=== PATIENT | female | born 2000 | race Hispanic/Latino ===

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

== ENCOUNTER 2023-04-06 16:12 | Emergency (ER) | payer MEDICAID, OTHER ==
[~2023-04-06] VITALS: Ht 165.1 cm; Wt 152.0 kg
[2023-04-06 16:26] VITALS: BP 138/74; PULSE 94; RESP 16; O2SAT 97
== END 2023-04-06 19:14 | disposition left against medical advice (07) ==
LOC: EDH 16:12
DX: M54.9 Dorsalgia, unspecified (principal); Z53.21 Procedure and treatment not carried out due to patient leaving prior to being seen by health care provider
CPT/HCPCS: 99281

== ENCOUNTER 2023-06-17 21:15 | Emergency (ER) | payer OTHER ==
[~2023-06-17] VITALS: Ht 165.1 cm; Wt 154.2 kg
[2023-06-17 23:50] LABS: APPEARANCE,URINE CLEAR (CLEAR); BILIRUBIN,URINE NEGATIVE (NEGATIVE); COLOR,URINE YELLOW (YELLOW); GLUCOSE, URINE (UA) NEGATIVE (NEGATIVE); KETONES,URINE NEGATIVE (NEGATIVE); LEUKOCYTE ESTERASE ,URINE 75 Leu/uL (NEGATIVE); NITRATE,URINE NEGATIVE (NEGATIVE); OCCULT BLOOD,URINE NEGATIVE (NEGATIVE); PROTEIN,URINE 20 mg/dL (NEGATIVE); UROBILINOGEN,URINE 0.2 mg/dL (0.2-1.0)
[2023-06-17 23:53] LABS: HCG,QUALITATIVE URINE NEGATIVE (NEGATIVE)
[2023-06-17 23:54] LABS: ADD UA MICROSCOPIC YES
[2023-06-17 23:58] LABS: MUCUS,URINE MOD LPF (None Seen); SQUAMOUS EPITHELIAL CELL,UR FEW /HPF (0-2)
[2023-06-18 00:01] LABS: BASOPHILS # (AUTO) 0.02 K/uL (0.00-0.20); BASOPHILS % (AUTO) 0.2 % (0.0-5.0); EOSINOPHILS # (AUTO) 0.12 K/uL (0.00-0.70); EOSINOPHILS % (AUTO) 1.1 % (0.0-8.0); HEMATOCRIT 39.7 % (36-48); IMMATURE GRANULOCYTE ABSOLUTE 0.05 K/uL (0-1); LYMPHOCYTES # (AUTO) 1.5 K/uL (1.0-4.8); LYMPHOCYTES % (AUTO) 13.8 % (21.0-51.0); MEAN CORPUSCULAR HEMOGLOBIN 27.9 pg (27.0-33.0); MEAN CORPUSCULAR HGB CONC 32.5 g/dL (32.0-36.0); MEAN CORPUSCULAR VOLUME 85.7 fL (80-100); MONOCYTES # (AUTO) 0.7 K/uL (0.1-1.0); MONOCYTES % (AUTO) 6.7 % (3.0-13.0); NEUTROPHILS # (AUTO) 8.2 K/uL (1.8-7.7); NEUTROPHILS % (AUTO) 77.7 % (40.0-77.0); PLATELET COUNT (AUTO) 376 K/uL (130-400); RED BLOOD CELL COUNT(AUTO) 4.63 MIL/uL (4.00-5.50); WHITE BLOOD COUNT (AUTO) 10.5 K/uL (4.8-10.8)
[2023-06-18] MEDS ORDERED: CEPH500B PO (00:06)
[2023-06-18 00:09] LABS: CREATININE 0.6 mg/dL (0.5-1.5); POTASSIUM 4.3 mmol/L (3.5-5.1)
[2023-06-18 00:14] LABS: ALBUMIN 3.7 g/dL (3.5-5.0); BILIRUBIN,TOTAL 0.3 mg/dL (0.2-1.0)
[2023-06-18] MEDS ORDERED: FAMO20TA8 PO (00:44)
[2023-06-18 01:23] VITALS: BP 132/76; PULSE 80; RESP 16; O2SAT 98
== END 2023-06-18 01:25 | disposition home or self-care (01) ==
LOC: EEVIPCON 21:15 → EDH 21:15
DX: N39.0 Urinary tract infection, site not specified (principal); K29.70 Gastritis, unspecified, without bleeding
CPT/HCPCS: 36415; 76705; 80053; 81001; 81025; 83690; 85025; 87088

== ENCOUNTER 2023-12-01 06:55 | Emergency (ER) | payer OTHER ==
[~2023-12-01] VITALS: Ht 165.1 cm; Wt 148.3 kg
[~2023-12-01 06:55] MED LIST: CEPH500B PO; FAMO20TA8 PO
[2023-12-01] MEDS: KETOROLAC 15MG/ML VIAL (15MG/ML) IM ONE (10:48)
[2023-12-01] MEDS ORDERED: CYCL10TA16 PO (12:56)
[2023-12-01] MEDS ORDERED: PRED20TA3 PO (12:56)
[2023-12-01] MEDS ORDERED: IBUP-2070 PO (12:56)
[2023-12-01 13:21] VITALS: BP 147/63; PULSE 90; RESP 17; O2SAT 99
== END 2023-12-01 13:57 | disposition home or self-care (01) ==
LOC: EDH 06:55
DX: M54.59 Other low back pain (principal); E66.01 Morbid (severe) obesity due to excess calories; Z68.43 Body mass index [BMI] 50.0-59.9, adult
CPT/HCPCS: 99285; 72131; 81025; 96372; J1885